=== PATIENT | female | born 1995 | race Caucasian/White ===

== ENCOUNTER 2018-11-24 23:45 | Emergency (ER) | payer BC ==
[2018-11-25] MEDS ORDERED: IBUPROFEN 600 MG TAB PO STA (00:21)
[2018-11-25] MEDS ORDERED: HYDROcodone/APAP 5-325MG 1 EACH TAB PO STA (00:21)
[2018-11-25] MEDS ORDERED: CLINDAMYCIN 150 MG CAP PO STA (00:21)
--- NOTE | 2018-11-25 00:28 | ED ---
General Adult HPI - General Source: patient Mode of arrival: ambulatory <Franny Ryan - Last Filed: 11/25/18 20:22> <April Jc - Last Filed: 11/26/18 05:39> - General Chief complaint: Dental/Oral Stated complaint: Dental Pain/Infection Time Seen by Provider: 11/25/18 00:12 - History of Present Illness Initial comments: 23-year-old female patient who underwent removal of 4 wisdom teeth 2 days ago presents to the emergency department today for evaluation of left-sided facial swelling and pain. Procedures performed by Dr. High at [facility]. Patient states that she noticed increased swelling and last evening. Patient states today the area to the left cheek has become hot to touch. Patient states that she has felt chilled. States that she has been taking Tylenol with Codeine and ibuprofen for pain relief but it is not helping. She denies any vomiting. States that she does have increased pain while opening her mouth. Denies any difficulty swallowing. Patient denies any recent rash, shortness breath, chest pain, abdominal pain, diarrhea, constipation, back pain, numbness, tingling, dizziness, weakness, hematuria, dysuria, urinary urgency, urinary frequency, headache, visual changes, or any other complaints. (Franny Ryan) - Related Data Previous Rx's Medication Instructions Recorded Clindamycin [Cleocin] 450 mg PO TID #90 capsule 11/25/18 Hydrocodone/Acetaminophen [[place] 1 tab PO Q6HR PRN #12 tab 11/25/18 5-325] Allergies Allergy/AdvReac Type Severity Reaction Status Date / Time No Known Allergies Allergy Verified 11/25/18 00:26 Review of Systems ROS Other: All systems not noted in ROS Statement are negative. <Franny Ryan - Last Filed: 11/25/18 20:22> ROS Other: All systems not noted in ROS Statement are negative. <April Jc - Last Filed: 11/26/18 05:39> ROS Statement: Those systems with pertinent positive or pertinent negative responses have been documented in the HPI. Past Medical History Past Medical History: Asthma Additional Past Medical History / Comment(s): ITP bleeding disorder, Additional Past Surgical History / Comment(s): Oral surgery Past Psychological History: No Psychological Hx Reported Smoking Status: Never smoker Past Alcohol Use History: None Reported Past Drug Use History: None Reported <Franny Ryan M - Last Filed: 11/25/18 20:22> General Exam General appearance: alert, in no apparent distress, other (Physical well- developed, well-nourished adult female patient in no acute distress. Vital signs upon presentation are temperature 99.9F, pulse 104, respirations 16, blood pressure 117/79, pulse ox 99% on room air.) Eye exam: Present: normal appearance, PERRL, EOMI. Absent: scleral icterus, conjunctival injection, periorbital swelling ENT exam: Present: normal oropharynx, mucous membranes moist, other (Left-sided facial swelling. Area is warm to touch. No erythema. Inspection of the mouth does reveal swelling over the bugle mucosa on the left lower dentition. Extraction site is intact.). Absent: normal exam Respiratory exam: Present: normal lung sounds bilaterally. Absent: respiratory distress, wheezes, rales, rhonchi, stridor Cardiovascular Exam: Present: regular rate, normal rhythm, normal heart sounds. Absent: systolic murmur, diastolic murmur, rubs, gallop, clicks GI/Abdominal exam: Present: soft, normal bowel sounds. Absent: distended, tenderness, guarding, rebound, rigid Neurological exam: Present: alert, oriented X3, CN II-XII intact Psychiatric exam: Present: normal affect, normal mood Skin exam: Present: warm, dry, intact, normal color. Absent: rash <Franny Ryan M - Last Filed: 11/25/18 20:22> Course Vital Signs 11/25/18 11/25/18 00:06 00:59 Temperature 99.9 F H 98.4 F Pulse Rate 104 H 99 Respiratory 16 18 Rate Blood Pressure 117/79 114/74 O2 Sat by Pulse 99 99 Oximetry Medical Decision Making <Franny Ryan M - Last Filed: 11/25/18 20:22> <April Jc - Last Filed: 11/26/18 05:39> - Medical Decision Making 23-year-old female patient presented to the emergency department today for evaluation of left-sided facial swelling and pain after having 4 wisdom teeth removed 2 days ago. Patient does have temperature 99.9, elevated heart rate 104. She is given pain medication here in the emergency department. She'll be started on clindamycin. She is instructed to follow-up with her oral surgeon for recheck on Monday. Return parameters were discussed in detail. She verbalizes understanding and agrees with this plan. (Franny Ryan) I was available for consultation in the emergency department. The history and physical exam were done by the midlevel provider. I was consulted for this patient's care. I reviewed the case with the midlevel provider and based on their presentation of the patient, I agree with the assessment, medical decision making and plan of care as documented. Chart was dictated using [employer] dictation software. Attempts were made to correct any dictation errors however some typographical errors may persist. (April Jc) Disposition Is patient prescribed a controlled substance at d/c from ED?: No Time of Disposition: 00:28 <Franny Ryan - Last Filed: 11/25/18 20:22> <April Jc - Last Filed: 11/26/18 05:39> Clinical Impression: Dental abscess Disposition: HOME SELF-CARE Condition: Good Instructions (If sedation given, give patient instructions): Dental Abscess (ED) Additional Instructions: Complete antibiotic prescription in full. Take medications as instructed. Follow-up with your oral surgeon on Monday. Return to the emergency department immediately for any new, worsening, or concerning symptoms. Prescriptions: Clindamycin [Cleocin] 450 mg PO TID #90 capsule Hydrocodone/Acetaminophen [[place] 5-325] 1 tab PO Q6HR PRN #12 tab PRN Reason: Pain Referrals: Dez Rascon MD [Primary Care Provider] - 1-2 days Rigoberto High DDS [STAFF PHYSICIAN] - 1-2 days
[2018-11-25 01:01] VITALS: BP 114/74; PULSE 99; RESP 18; TEMP 98.4
== END 2018-11-25 01:02 | disposition home or self-care (01) ==
LOC: SUPCPDRO 23:45 → EC 23:45
DX: K04.7 Periapical abscess without sinus (principal)
CPT/HCPCS: 99282